=== PATIENT | female | born 1985 | race Caucasian/White ===

== ENCOUNTER 2016-12-20 17:41 | Emergency (ER) | payer MEDICAID ==
[~2016-12-20] VITALS: Ht 147.3 cm; Wt 54.5 kg
[2016-12-20 21:49] VITALS: BP 118/62
== END 2016-12-20 21:51 | disposition home or self-care (01) ==
LOC: EDBD 17:43 → EMS 17:43
DX: H60.91 Unspecified otitis externa, right ear (principal)
CPT/HCPCS: 99283